=== PATIENT | female | born 1990 | race Caucasian/White ===

== ENCOUNTER 2017-10-13 15:15 | Emergency (ER) | payer OTHER ==
[2017-10-13 15:22] VITALS: BP 129/88
[2017-10-13] MEDS ORDERED: IBUPROFEN 800 MG TABLET PO ONE (16:22)
--- NOTE | 2017-10-13 16:41 | ER Document Report ---
HPI - HPI Patient complains to provider of: upper back pain Onset: Yesterday Onset/Duration: Sudden Quality of pain: Achy Severity: Severe Pain Level: 4 Context: Presents to emergency department with reports of right upper back pain. 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 She bent over to lift heavy boxes silverware and turned and felt a pop in her back. She reports since that time she has had extreme pain hurts when she takes deep breath. Denies fever vomiting diarrhea. Denies recent cough. Patient does have a history of spina bifida with surgical repair. Shortness of breath. Associated Symptoms: Hurts to breath Exacerbated by: Deep breathing Relieved by: Denies Similar symptoms previously: No Recently seen / treated by doctor: No - CONSTITUTIONAL Constitutional: DENIES: Fever, Chills - EENT EENT: DENIES: Sore Throat, Ear Pain, Eye problems - NEURO Neurology: DENIES: Headache, Weakness, Vision blurred, Dizzinesss / Vertigo - CARDIOVASCULAR Cardiovascular: DENIES: Chest pain - RESPIRATORY Respiratory: DENIES: Trouble Breathing, Coughing - GASTROINTESTINAL Gastrointestinal: DENIES: Abdominal Pain, Black / Bloody Stools - URINARY Urinary: DENIES: Dysuria, Urgency, Frequency - MUSCULOSKELETAL Musculoskeletal: DENIES: Extremity pain Past Medical History - General Information source: Patient Last Menstrual Period: current - Social History Smoking Status: Current Every Day Smoker Chew tobacco use (# tins/day): No Frequency of alcohol use: Occasional Drug Abuse: None Occupation: [employer] Family History: None Patient has suicidal ideation: No Patient has homicidal ideation: No - Medical History Medical History: Negative Renal/ Medical History: Denies: Hx Peritoneal Dialysis Past Surgical History: Reports: Hx Orthopedic Surgery - lumbar back sx d/t spina bifida Vertical Provider Document - CONSTITUTIONAL Agree With Documented VS: Yes Exam Limitations: No Limitations General Appearance: WD/WN, No Apparent Distress - INFECTION CONTROL TRAVEL OUTSIDE OF THE [place] IN LAST 30 DAYS: No - HEENT HEENT: Atraumatic, Normocephalic - NECK Neck: Normal Inspection, Supple. negative: Lymphadenopathy-Left, Lymphadenopathy-Right - RESPIRATORY Respiratory: Breath Sounds Normal, No Respiratory Distress. negative: Chest Non -Tender, Rhonchi, Wheezing - CARDIOVASCULAR Cardiovascular: Regular Rate - BACK Back: Normal Inspection - denies pain with palpation, reports pain with deep breath - MUSCULOSKELETAL/EXTREMETIES Musculoskeletal/Extremeties: [place], FROM, Non-Tender - NEURO Level of Consciousness: Awake, Alert, Appropriate Motor/Sensory: No Motor Deficit - DERM Integumentary: Warm, Dry Adult Front & Back Diagram: 1 - reports deep elvis Course - Re-evaluation Re-evalutation: 10/13/17 16:41 respiratory rate even/unlabored, heart rate 70., rib with cxray ordered. 10/13/17 17:00 X-ray negative patient instructed instructed to remember to cough and deep breathe and take Motrin for the pain. - Vital Signs Vital signs: Temp Pulse Resp BP Pulse Ox 98.8 F 71 16 129/88 H 99 10/13/17 15:21 10/13/17 15:21 10/13/17 15:21 10/13/17 15:21 10/13/17 15:21 - Diagnostic Test Radiology reviewed: Image reviewed, Reports reviewed - EXAM DESCRIPTION: RIBS RIGHT W/PA CHEST COMPLETED DATE/TIME: 10/13/2017 4:46 pm REASON FOR STUDY: pain with deep breath, felt pop COMPARISON: None. TECHNIQUE: Frontal view of the chest and additional views of the right ribs acquired. NUMBER OF VIEWS : Three view. LIMITATIONS: None. FINDINGS: FRONTAL CXR: No pneumothorax. No pleural effusion. No atelectasis or infiltrates. RIBS: No displaced rib fractures. No lytic or blastic bony lesions. OTHER: No other significant finding. IMPRESSION: NO PNEUMOTHORAX. NO DISPLACED RIB FRACTURES. Discharge - Discharge Clinical Impression: Upper back pain on right side Condition: Stable Disposition: HOME, SELF-CARE Instructions: Use of [id number] Ibuprofen ([facility]), Ice Packs ([facility]) Additional Instructions: *You have been evaluated for right upper back pain *Take motrin as indicated *Follow up with a primary care provider in 5 days *Return to ED for increasing fever, cough, worsening condition, changes, needs Forms: Return to Work
--- NOTE | 2017-10-13 16:54 | RADIOLOGY REPORT (SQ) ---
EXAM DESCRIPTION: RIBS RIGHT W/PA CHEST COMPLETED DATE/TIME: 10/13/2017 4:46 pm REASON FOR STUDY: pain with deep breath, felt pop COMPARISON: None. TECHNIQUE: Frontal view of the chest and additional views of the right ribs acquired. NUMBER OF VIEWS: Three view. LIMITATIONS: None. FINDINGS: FRONTAL CXR: No pneumothorax. No pleural effusion. No atelectasis or infiltrates. RIBS: No displaced rib fractures. No lytic or blastic bony lesions. OTHER: No other significant finding. IMPRESSION: NO PNEUMOTHORAX. NO DISPLACED RIB FRACTURES. COMMENT: SITE OF TRAUMA/COMPLAINT MARKED/STAMP COMPLETED: No TECHNICAL DOCUMENTATION: JOB ID: [id number] [employer]- All Rights Reserved Reading location - IP/workstation name: [email or web address]
== END 2017-10-13 17:08 | disposition home or self-care (01) ==
LOC: ER 15:15
DX: M54.89 Other dorsalgia (principal); X50.0XXA Overexertion from strenuous movement or load, initial encounter; Y93.89 Activity, other specified; Y99.0 Civilian activity done for income or pay
CPT/HCPCS: 99283